=== PATIENT | female | born 1965 ===

== ENCOUNTER → 2016-06-15 | Day surgery (SDC) | payer BC ==
[~2016-06-15] VITALS: Ht 165.1 cm; Wt 85.7 kg
[2016-06-15] VITALS (16 sets, daily range): BP systolic 109–157; BP diastolic 61–90
[~2016-06-15] MED LIST: Bacitracin 50000 Units Vial ONE; Bacitracin Oint 15gm Tube TOPIC ONE; Dexamethasone 4mg/ml vial ONE; EPINEPHrine 1mg/1ml Amp ONE; Hydromorphone 0.5mg/0.5ml inj IVP PRN; Ketorolac 30mg Inj IV PRN; LEVOTHYROXINE100 MCG ORAL; LR 1000ml IVLG ONE; LR 1000ml ONE; Lidocaine 0.5% Epi 50 mL Vial ONE; Lidocaine 1% Plain 30 ml INJ ONE; Metoprolol 5mg/5ml Inj ONE; NS Irrig 1000ml ONE; Nitroglycerin 2% oint pkt TOPIC ONE; Norco 5mg/325mg tab ORAL PRN; ProvayBlue 5mg/ml 10ml amp INJ ONE; fentaNYL 100 mcg/2 mL IV PRN
--- NOTE | 2016-06-15 08:12 | Pre-Procedure Note/Attestation ---
Pre-Procedure Note/Attestation Complete Prior to Procedure Planned Procedure: bilateral Procedure Narrative: Second Stage Beast Reconstruction with remove and replace sizer for permanenet implant, capsulectomy/capsulootmy, left breast reduction/lift with implant. Liposuction bilateral lateral chest Indications for Procedure Pre-Operative Diagnosis: Right breast cancer Attestation I attest that I discussed the nature of the procedure; its benefits; risks and complications; and alternatives (and the risks and benefits of such alternatives ), prior to the procedure, with the patient (or the patient's legal personal banking representative). I attest that, if there was a reasonable possibility of needing a blood transfusion, the patient (or the patient's legal personal banking representative) was given the [place] [employer] [facility] standardized written summary, pursuant to the [place] Blood Safety Act ([place] Health and Safety Code # 1645, as amended). I attest that I re-evaluated the patient just prior to the surgery and that there has been no change in the patient's H&P, except as documented below: ANALIA SHUKLA Jun 15, 2016 08:12
--- NOTE | 2016-06-15 11:29 | Anethesia Preoperative Eval ---
Anesthesia Pre-op PMH/ROS General Date of Evaluation: Jun 15, 2016 Time of Evaluation: 06:45 Anesthesiologist: Virgilio ASA Score: ASA 2 Mallampati Score Class I : Soft palate, uvula, fauces, pillars visible Class II: Soft palate, uvula, fauces visible Class III: Soft palate, base of uvula visible Class IV: Only hard plate visible Mallampati Classification: Class I Surgeon: Jorge L Diagnosis: Breast CA Surgical Procedure: Breast Reconstruction Family History: no anesthesia problems Allergies: Coded Allergies: No Known Allergies (Unverified , 06/14/16) Medications: see eMAR Past Medical History Cardiovascular: Denies: CAD, HTN, RI, arrhythmia, other, valve dz Pulmonary: Denies: COPD, JIL, asthma, other Gastrointestinal/Genitourinary: Denies: CRI, ESRD, GERD, other Neurologic/Psychiatric: Denies: CVA, TIA, dementia, depression/anxiety, other Endocrine: Reports: hypothyroidism HEENT: Denies: [place] (L), [place] (R), cataract (L), cataract (R), glaucoma, other Musculoskeletal/Integumentary: Denies: DDD, DJD, OA, RA, edema, other Other: obesity Anesthesia Pre-op Phys. Exam Physician Exam Last Vital Signs Date Time Temp Pulse Resp B/P Pulse Ox O2 Delivery O2 Flow Rate FiO2 06/15/16 05:58 98.5 69 18 120/76 99 Room Air Constitutional: NAD Neurologic: CN 2-12 intact Cardiovascular: RRR Respiratory: CTA Gastrointestinal: S/NT/ND Airway Exam Mallampati Score: Class II Anesthesia Pre-op A/P Labs Urine Test Test 06/15/16 05:25 Urine HCG, Qualitative Negative LITA BOJORQUEZ M.D. Jun 15, 2016 11:29
--- NOTE | 2016-06-15 14:05 | Immediate Post-Op Evaluation ---
Immediate Post-Op Evalulation Immediate Post-Op Evalulation Procedure: Breast Recostruction Date of Evaluation: Jun 15, 2016 Time of Evaluation: 14:20 IV Fluids: 2l Blood Products: 0 Estimated Blood Loss: 100 Urinary Output: 500 Blood Pressure Systolic: 130 Blood Pressure Diastolic: 70 Pulse Rate: 90 Respiratory Rate: 20 O2 Sat by Pulse Oximetry: 99 Temperature (Fahrenheit): 98 Pain Score (1-10): 2 Nausea: No Vomiting: No Complications na Patient Status: awake Hydration Status: adequate Drug: Ancef 2G Given Within 1 Hr of Incision: Yes Time Given: 08:00 LITA BOJORQUEZ M.D. Jun 15, 2016 14:05
--- NOTE | 2016-06-15 14:07 | 48 Hour Post Anesthesia Eval ---
Post Anesthesia Evaluation Procedure: Breast Recostruction Date of Evaluation: Jun 15, 2016 Time of Evaluation: 15:20 Blood Pressure Systolic: 130 0: 80 Pulse Rate: 87 Respiratory Rate: 20 Temperature (Fahrenheit): 98 O2 Sat by Pulse Oximetry: 99 Airway: patent Nausea: No Vomiting: No Pain Intensity: 2 Hydration Status: adequate Cardiopulmonary Status: stavble Mental Status/LOC: patient returned to baseline Follow-up Care/Observations: na Post-Anesthesia Complications: na Follow-up care needed: N/A LITA BOJORQUEZ M.D. Jun 15, 2016 14:07
--- NOTE | 2016-06-15 14:25 | Brief Operative Note ---
Immediate Post Operative Note Operative Note Pre-op Diagnosis: Right breast cancer Procedure: Removal of right tissue senior partner, capsulectomy, capsulotomy, placement of right permanent implant, breast reduction left breast for symmetry, liposuction bilateral lateral chest. Post-op Diagnosis: same as pre-op Findings: consistent w/pre-op dx studies Surgeon: Jorge L Piercer: Maggie BUSBY Anesthesiologist: Bela Anesthesia: general Specimen: yes Complications: none Condition: stable Fluids: 2l Estimated Blood Loss: minimal Drains: none Implant(s) used?: No ANALIA SHUKLA Jun 15, 2016 14:25
--- NOTE | 2016-06-15 22:08 | Operative Note - Dictated ---
DATE OF OPERATION: 06/15/2016 SURGEON: Delon Coats M.D. [employer] ATTENDANT: Pavel Dos Santos ANESTHESIOLOGIST: Naldo Poole M.D. PREOPERATIVE DIAGNOSIS: History of right breast cancer. POSTOPERATIVE DIAGNOSIS: History of right breast cancer. OPERATION: Second-stage breast reconstruction with removal of the right breast tissue yarn mercerizer operator helper, capsulotomy/capsulectomy, placement of permanent right breast implant, left breast reduction, bilateral lateral chest suction lipectomy for symmetry. ANESTHESIA: General tracheal anesthesia. OPERATIVE INDICATIONS: This is a 50-year-old female, who has a prior history of right breast cancer, who underwent a modified radical mastectomy and placement of right tissue yarn mercerizer operator helper with AlloDerm at the same time. She has underwent subsequent expansion of the yarn mercerizer operator helper and now presents for second-stage removal of yarn mercerizer operator helper with a symmetry procedure on the left. She had a grade 3 ptosis on the left. The operative plan was devised and agreed upon and once informed consent was obtained once she was medically cleared. She was scheduled for elective surgery. The patient was seen in the preoperative area and the operative plan was again discussed and agreed upon. The risks were again explained to the patient and operative markings were made and an intravenous was placed and she was taken back to the operating room. The patient was placed on the operating table in supine position once SCDs were placed on bilateral lower extremities. General anesthesia was induced and a Martinez catheter was placed and her chest and abdomen were prepped and draped in usual sterile fashion. A timeout was then performed and then 5 mL of 0.5% lidocaine with 1:100,000 epinephrine was injected in the right mastectomy incision. This incision was then reopened for approximately 5 cm and an intact tissue yarn mercerizer operator helper was seen. This was deflated to be able to remove more easily and once this was done, taken off the field. The inferior capsulotomy was made. Capsulectomy was performed of the medial breast capsule at the top of the field. The subpectoral pocket was recreated superiorly and some 150 mL Sizer was placed and inflated to 850 mL. This had a good operable rejection. At this point, the patient was sat up, and the shape of the breast was deemed to be very good. Attention was turned to the left side. A 42 millimeter cookie cutter was used to emilio the new areolar size and incision was then made with a #15 blade around the areola. The preoperative incisions were then made initially in the shape of a vertical reduction pattern. The skin was then de-epithelialized around the medial pedicle that was to be created for the left breast. Following this, the pedicle was developed down to the pectoral fascia and the inferior breast tissue parenchyma was removed under the general shape of a Nolan pattern skin incision. Following this, the skin was tailor tacked and a Nolan pattern incision needed to be made due to the excess skin that the patient had. This was marked and the skin was excised on block. A 2-0 Vicryl was then used to suture the medial lateral pedicle pillars together in a simple interrupted fashion and the skin on the left breast was then tailor tacked. There was some slight tension on this and the upper poles were deemed to be a relatively similar. The left breast still had a slightly wider base diameter due to the preoperative asymmetry. At this point, the decision was made to not use the high-profile implant on the right and so the Sizer was removed and a 68 MP neutral saline breast implant, serial number #[id number] was placed into the pocket after triple antibiotic solution was used to irrigate the pocket and all gloves have been changed. The implant was 800 mL and was filled to 850 mL. The patient was sat up and the symmetry seemed to be good. At this point, was infiltrated into the lateral chest on both sides and suction lipectomy was performed after injecting 700 mL of tumescent with 350 mL per side. Total of 550 mL was removed to shape the lateral aspect of the breast. At this point, the patient was sat up and the new areolar position was marked on the left side and the skin was incised and de-epithelialized. The new areola was then sutured into place with 3-0 Vicryl and the skin incisions on the sides were closed with 3-0 Monocryl and deep dermis in a 4-0 Monocryl in a running subcuticular fashion. The areola was closed with combination of 3-0 Vicryl and 3-0 Monocryl as well as a 4-0 Monocryl in a running subcuticular fashion. The right side was closed with 3-0 Monocryl on the AlloDerm pectorals layer followed by 4-0 Monocryl on deep dermis and 4-0 Monocryl in running subcuticular fashion. The dressings were then applied, which consisted of Steri-Strips and incisions and gauze and ABDs and a surgical bra. The Martinez catheter was removed at the end of procedure. The patient was then extubated and taken to the recovery room stable condition. No complications. Estimated blood loss was minimal. The total tumescence was 700 mL, total aspirate was 550 mL. Urine output was 550 mL. Delon Coats M.D. DR: LUCIANO JOB#: [id number] CC:
== END | disposition home or self-care (01) ==
LOC: SUR 05:11
DX: C50.911 Malignant neoplasm of unspecified site of right female breast (principal); N65.1 Disproportion of reconstructed breast; E66.9 Obesity, unspecified; E03.9 Hypothyroidism, unspecified
CPT/HCPCS: 11970; 19318; 19371; 81025; J0171; J0690; J1100; J1170; J1885; J2001; J2405; J7120; Q9968; 94003; 94150